=== PATIENT | male | born 1985 | race Caucasian/White ===

== ENCOUNTER 2021-04-15 11:34 | Emergency (ER) | payer OTHER ==
[2021-04-15 13:04] LABS: BASOPHIL 0.4 % (0-2); EOSINOPHIL 0.2 % (0-5); HGB 14.7 g/dl (13.2-18.0); LYMPHOCYTE 16.1 % (15-48); MCH 29.5 pg (25.0-31.0); MCV 92.4 fL (78.0-100.0); MONOCYTE 6.4 % (0-12); MPV 9.6 fL (6.0-9.5); NEUTROPHIL 76.4 % (41-80); NRBC 0; PLT 324 K/uL (150-400); RBC 4.98 M/uL (4.70-6.00); WBC 9.2 K/uL (4.0-10.5)
[2021-04-15 13:21] LABS: BILIRUBIN NEGATIVE (NEGATIVE); BLOOD NEGATIVE Ery/uL (NEGATIVE); CLARITY CLEAR (CLEAR); COLOR YELLOW (YELLOW); GLUCOSE (U) NORMAL (NORMAL); LEUKOCYTES NEGATIVE Leu/uL (NEGATIVE); NITRITE NEGATIVE (NEGATIVE); PROTEIN NEGATIVE (NEGATIVE); pH 7.5 (5.0-9.0)
[2021-04-15 13:25] LABS: AMPHETAMINES NEGATIVE (NEGATIVE); BARBITURATES NEGATIVE (NEGATIVE); ECSTASY (MDMA) NEGATIVE (NEGATIVE); MARIJUANA (THC) NEGATIVE (NEGATIVE); METHADONE NEGATIVE (NEGATIVE); OPIATES NEGATIVE (NEGATIVE); OXYCODONE NEGATIVE (NEGATIVE)
[2021-04-15 13:32] LABS: ACETAMINOPHEN (TYLENOL) < 2.0 ug/mL (10.0-30.0); ALBUMIN 4.5 g/dL (3.4-5.0); ALKALINE PHOSHATASE 60 U/L (46-116); ALT 37 U/L (16-63); AST 17 U/L (15-37); BILIRUBIN - TOTAL 0.5 mg/dL (0.2-1.0); BUN 11 mg/dL (7-18); BUN/CREAT RATIO (CALC) 13.8 RATIO; CHLORIDE 101 mmol/L (98-107); CO2 (BICARBONATE) 31 mmol/L (21-32); GLOBULIN (CALCULATION) 3.7 g/dL; GLUCOSE 87 mg/dL (74-106); POTASSIUM 4.1 mmol/L (3.5-5.1); TOTAL PROTEIN 8.2 g/dL (6.4-8.2)
== END 2021-04-15 16:46 | disposition home or self-care (01) ==
LOC: FER 11:34
PROVIDERS: Physician Assistant
DX: F32.A Depression, unspecified (principal); F41.9 Anxiety disorder, unspecified
CPT/HCPCS: 36415; 80053; 80305; 81003; 85025; 99284; G0480